=== PATIENT | male | born 1990 | race African-American/Black ===

== ENCOUNTER 2017-04-15 11:40 | Emergency (ER) | payer OTHER ==
[2017-04-15 12:09] LABS: BASOPHIL 0.3 % (0-2); EOSINOPHIL 4.8 % (0-5); HCT 51.3 % (42.0-52.0); HGB 18.3 g/dl (13.2-18.0); MCH 30.4 pg (25.0-31.0); MCHC 35.7 g/dL (32.0-36.0); MCV 85.4 fL (78.0-100.0); MONOCYTE 8.8 % (0-12); MPV 9.1 fL (6.0-9.5); NEUTROPHIL 58.1 % (41-80); PLT 298 K/uL (150-400); RBC 6.01 M/uL (4.70-6.00); RDW 13.4 % (11.5-14.0); WBC 11.8 K/uL (4.0-10.5)
[2017-04-15 12:31] LABS: ALBUMIN 4.7 g/dL (3.5-5.0); BILIRUBIN - TOTAL 0.3 mg/dL (0.1-1.0); CREATININE 1.1 mg/dL (0.7-1.2); GLOBULIN (CALCULATION) 3.1 g/dL (2.2-4.2); POTASSIUM 4.3 mmol/L (3.5-5.1); TOTAL PROTEIN 7.8 g/dL (6.4-8.3)
== END 2017-04-15 14:10 | disposition home or self-care (01) ==
LOC: FER 11:40
PROVIDERS: Emergency Medicine
DX: J01.00 Acute maxillary sinusitis, unspecified (principal); G44.209 Tension-type headache, unspecified, not intractable; F17.210 Nicotine dependence, cigarettes, uncomplicated; Z91.030 Bee allergy status
CPT/HCPCS: 36415; 70450; 80053; 85025; J1100; J1885; J2765